=== PATIENT | female | born 1930 | race Caucasian/White ===

== ENCOUNTER 2016-12-25 08:38 | Day surgery (SDC) | payer MEDICARE, MEDICAID ==
[~2016-12-25 08:38] MED LIST: IV START KIT ONE; LACTATED RINGERS 1,000 ML IV SCH; LACTATED RINGERS 1,000 ML ONE
[2016-12-25] MEDS ORDERED: VANCOMYCIN HCL 500 MG in NS 0.9% (MINI-BAG PLUS) 100 ML IV ONE (09:00)
[2016-12-25] MEDS ORDERED: PUMP TUBING ONE (09:20)
[2016-12-25] MEDS ORDERED: MIDAZOLAM HCL 1 MG/ML 2ML VIAL ONE (09:31)
[2016-12-25] MEDS ORDERED: FENTANYL 100 MCG/2 ML VIAL ONE (09:31)
[2016-12-25] MEDS ORDERED: PROPOFOL 20 ML IV ONE (09:31)
[2016-12-25] MEDS ORDERED: LIDOCAINE Viscous 2% 15 ML UDCUP ONE (10:26)
[2016-12-25 15:25] LABS: HELICOBACTER PYLORII DETECTION NEGATIVE (NEGATIVE)
--- NOTE | 2016-12-27 13:21 | SURGPATH ---
[facility] [address] [place] [id number] Patient Name: WELLINGTON RAMIREZ MR#: [id number] : 1930 Gender: F Specimen #: [id number] Collected: 12/25/2016 Received: 12/26/2016 Reported: 12/27/2016 Submitting Phys: BRENDA MYERS Copy To Phys: AJ HOLBROOK [facility] Clinical History / Pre-Operative Diagnosis: Substernal chest pain; dysphagia; bloating; rule out giardia, celiac sprue and gastritis Specimen Source / Surgical Procedure Performed: #1-duodenal biopsy; #2-antral biopsy Interpretation: 1. DUODENAL BIOPSY: - NO SIGNIFICANT PATHOLOGIC ABNORMALITIES IDENTIFIED. 2. ANTRAL BIOPSY: - MILD CHRONIC ANTRAL GASTRITIS WITH REACTIVE MUCOSAL CHANGES. - NO HELICOBACTER ORGANISMS IDENTIFIED ON ROUTINE STAINING. Electronically Signed Out Elena Frey M.D. Gross Description: #1 The specimen is received in a formalin filled container labeled with the patient's name and "duodenal biopsy". Two gómez biopsies are 0.4 and 0.5 cm. Totally embedded in cassette #1. #2 The specimen is received in a formalin filled container labeled with the patient's name and "antral biopsy". A single gómez biopsy is 0.4 cm. Totally embedded in cassette #2. Giuseppe Blair Microscopic Description: 1. Sections of the duodenal biopsy show fragments of benign duodenal mucosa with no significant pathologic changes. 2. Sections of the antral biopsy show mildly increased chronic inflammation of the lamina propria with focal clustering of plasma cells. No active, acute inflammation is seen. There are reactive changes of the gastric pits with mild dilatation and irregularity. There is no evidence of intestinal metaplasia or mucosal atrophy. No Helicobacter organisms are identified on the routinely stained sections. 1: [id number] 2: 76388 K29.50
== END 2016-12-25 11:35 | disposition home or self-care (01) ==
LOC: SDC 08:38
PROVIDERS: ATTEND Internal Medicine Gastroenterology
PROC: 0DB98ZX Excision of Duodenum, Via Natural or Artificial Opening Endoscopic, Diagnostic (ICD-10-PCS; principal; 2016-12-25)
PROC: 0DB68ZX Excision of Stomach, Via Natural or Artificial Opening Endoscopic, Diagnostic (ICD-10-PCS; 2016-12-25)
DX: K29.50 Unspecified chronic gastritis without bleeding (principal); K29.80 Duodenitis without bleeding; K57.30 Diverticulosis of large intestine without perforation or abscess without bleeding; Z95.2 Presence of prosthetic heart valve; Z79.01 Long term (current) use of anticoagulants; E11.9 Type 2 diabetes mellitus without complications; I10 Essential (primary) hypertension; M79.1 Myalgia; E54 Ascorbic acid deficiency; E78.5 Hyperlipidemia, unspecified; Z88.8 Allergy status to other drugs, medicaments and biological substances; Z88.5 Allergy status to narcotic agent; Z88.0 Allergy status to penicillin; Z88.7 Allergy status to serum and vaccine; Z79.84 Long term (current) use of oral hypoglycemic drugs
CPT/HCPCS: 43239; 87081; J3010; J3370; J2250; A9270; J7120